=== PATIENT | male | born 1990 | race African-American/Black ===

== ENCOUNTER 2024-05-26 10:28 | Outpatient (CLI) | payer MEDICAID | END 2024-05-26 23:59 | disposition critical access hospital (66) | LOC: EMS 10:28 | DX: R07.89 Other chest pain (principal); R10.811 Right upper quadrant abdominal tenderness; R10.812 Left upper quadrant abdominal tenderness; Y04.8XXA Assault by other bodily force, initial encounter | CPT/HCPCS: A0425; A0429; A0999 ==

== ENCOUNTER 2024-05-26 10:46 | Emergency (ER) | payer MEDICAID ==
[2024-05-26 11:04] VITALS: BP 136/87; O2SAT 99
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
== END 2024-05-26 11:28 | disposition home or self-care (01) ==
LOC: ED 10:46
DX: R06.02 Shortness of breath (principal); Y04.2XXA Assault by strike against or bumped into by another person, initial encounter; Y92.480 Sidewalk as the place of occurrence of the external cause; F17.200 Nicotine dependence, unspecified, uncomplicated
CPT/HCPCS: 93005; 99283